=== PATIENT | male | born 1965 | race Caucasian/White ===

== ENCOUNTER 2019-01-20 17:21 | Emergency (ER) | payer OTHER ==
[~2019-01-20] VITALS: Ht 180.3 cm; Wt 127.0 kg
[2019-01-20 18:15] LABS: BASOPHILS ABSOLUTE AUTO 0.06 K/mm3 (0.00-0.23); BASOPHILS PERCENT AUTO 0 % (0-2); EOSINOPHILS ABSOLUTE AUTO 0.01 K/mm3 (0.00-0.68); EOSINOPHILS PERCENT AUTO 0 % (0-6); Hematocrit 54.8 % (37.0-53.0); Hemoglobin 18.6 g/dL (13.5-17.5); IMMATURE GRAN ABSOLUTE AUTO 0.23 K/mm3 (0.00-0.10); IMMATURE GRAN PERCENT AUTO 1 % (0-1); LYMPHOCYTES PERCENT AUTO 11 % (21-46); MONOCYTES ABSOLUTE AUTO 0.91 K/mm3 (0.16-1.47); MONOCYTES PERCENT AUTO 5 % (4-13); Mean Corpuscular HGB 28.7 pg (26.0-34.0); Mean Corpuscular HGB Conc 33.9 g/dL (31.5-36.5); Mean Corpuscular Volume 84 fL (80-100); Mean Platelet Volume 11.7 fL (9.1-12.4); NEUTROPHILS PERCENT AUTO 82 % (41-73); Platelet Count 236 K/mm3 (150-400); RDW Coefficient Variation 14.1 % (11.7-14.2); RDW Standard Deviation 41.9 fL (35.1-46.3); Red Blood Cell Count 6.49 M/mm3 (4.30-5.90); White Blood Cell Count 18.11 K/mm3 (4.00-11.30)
[2019-01-20 18:31] LABS: Alanine Aminotransfer (ALT/SGP 47 U/L (12-78); Albumin, Blood 3.9 g/dL (3.4-5.0); Alk Phos 67 U/L (50-136); Anion Gap 6 mmol/L (6-16); Aspartate Aminotrans (AST/SGOT 27 U/L (12-37); Bilirubin, Total 1.3 mg/dL (0.1-1.0); Blood Urea Nitrogen 20 mg/dL (8-24); Bun/Creatinine Ratio 18.2 (12.0-20.0); CO2, Blood 26 mmol/L (21-32); Calcium, Blood 9.4 mg/dL (8.5-10.1); Chloride, Blood 100 mmol/L (98-108); Globulin, Blood 3.9 g/dL (2.2-4.0); Glomerular Filtration Rate >60 (60-); Glucose, Blood 116 mg/dL (70-99); Potassium, Blood 3.9 mmol/L (3.5-5.5); Sodium, Blood 132 mmol/L (136-145); Total Protein, Blood 7.8 g/dL (6.4-8.2); Troponin I <0.015 ng/mL (0.000-0.040)
[2019-01-20] MEDS ORDERED: ZESTORETIC 20-121 EA PO (20:00)
[2019-01-20] MEDS ORDERED: TADALAFIL5 M1 PO (20:01)
[2019-01-20] MEDS ORDERED: BUPROPION XL150 MG PO (20:02)
[2019-01-20] MEDS ORDERED: OMEPRAZOLE20 MG PO (20:07)
[2019-01-20] MEDS ORDERED: Aspir 8181 MG PO (20:07)
[2019-01-20] MEDS ORDERED: TRAM50 PO (20:08)
[2019-01-20] MEDS ORDERED: THERA1 EACH PO (20:08)
[2019-01-20 20:30] LABS: Source, Urine Clean Catch
[2019-01-20 20:38] LABS: Bilirubin, Urine Neg (Neg); Blood, Urine Neg (Neg); Glucose Qualitative, Urine Neg (Neg); Ketones, Urine Neg (Neg); Leukocyte Esterase, Urine Neg (Neg); Nitrite, Urine Neg (Neg); Protein, Urine Neg (Neg); Urobilinogen, Urine NORM (Normal)
[2019-01-20 20:48] LABS: Appearance, Urine Clear (Clear); Color, Urine Yellow (P-Yellow)
[2019-01-20] MEDS ORDERED: ONDA4ODT MM (21:16)
== END 2019-01-20 21:36 | disposition home or self-care (01) ==
LOC: ER 17:21
PROVIDERS: Physician Assistant
DX: K52.9 Noninfective gastroenteritis and colitis, unspecified (principal); I10 Essential (primary) hypertension
CPT/HCPCS: 36415; 71046; 74177; 80053; 81003; 83605; 83690; 83880; 84484; 85025; 87040; 93005; 93010; 96361; 96374-59; 96375; 96376; 99284-25; A9270-GY; J1170; J2405; J7030; Q9967